=== PATIENT | male | born 1940 | race Caucasian/White ===

== ENCOUNTER 2018-03-13 17:03 | Emergency (ER) | payer MEDICARE, OTHER ==
[2018-03-13] MEDS ORDERED: Sulfamethox/Trimethoprim DS 800/160* TAB PO ONE (19:24)
--- NOTE | 2018-03-13 19:25 | ED ---
Skin Complaint - HPI Summary HPI Summary: Complains of possible insect bite to right becerra 3 days with purulent drainage and redness and tenderness on right anterior becerra. Denies fever, N/V, loss of sensation or function in right lower extremity. - History of Current Complaint Chief Complaint: EDExtremityLower Time Seen by Provider: 03/13/18 17:47 Stated Complaint: RT LEG LAC Hx Obtained From: Patient Onset/Duration: Started Days Ago Timing: Constant Onset Severity: Mild Current Severity: Mild Pain Intensity: 2 Pain Scale Used: 0-10 Numeric Skin Location: Discrete Aggravating Symptom(s): Nothing Alleviating Symptom(s): Nothing Associated Signs & Symptoms: Tenderness - Allergy/Home Medications Allergies/Adverse Reactions: Allergies Allergy/AdvReac Type Severity Reaction Status Date / Time No Known Allergies Allergy Verified 03/13/18 17:10 PMH/Surg Hx/FS Hx/Imm Hx Infectious Disease History: No Infectious Disease History: Denies: Traveled Outside the [place] in Last 30 Days - Social History Alcohol Use: None Substance Use Type: Reports: None Smoking Status (MU): Former Smoker Review of Systems Constitutional: Negative Eyes: Negative ENT: Negative Cardiovascular: Negative Respiratory: Negative Gastrointestinal: Negative Genitourinary: Negative Musculoskeletal: Negative Skin: Other Neurological: Negative Psychological: Normal All Other Systems Reviewed And Are Negative: Yes Physical Exam - Summary Physical Exam Summary: 5 cm x 5 cm area of erythema with very small opening with minimal purulent drainage. PMS intact on right lower extremity. Triage Information Reviewed: Yes Vital Signs On Initial Exam: Initial Vitals Temp Pulse Resp BP Pulse Ox 98.1 F 73 16 130/78 99 03/13/18 17:06 03/13/18 17:06 03/13/18 17:06 03/13/18 17:06 03/13/18 17:06 Vital Signs Reviewed: Yes Appearance: Positive: Well-Appearing Skin: Positive: Warm Head/Face: Positive: Normal Head/Face Inspection Eyes: Positive: Normal Neck: Positive: Supple Respiratory/Lung Sounds: Positive: Clear to Auscultation Cardiovascular: Positive: Normal Abdomen Description: Positive: Nontender Musculoskeletal: Positive: Normal Neurological: Positive: Normal Psychiatric: Positive: Normal AVPU Assessment: Alert - Arnold Coma Scale Best Eye Response: 4 - Spontaneous Best Motor Response: 6 - Obeys Commands Best Verbal Response: 5 - Oriented Coma Scale Total: 15 Procedures - Incision and Drainage 1 Site: right anterior becerra Anesthesia: Other - no anesthesia. Patient opted to just have manual pressure applied to drain abscess instead of doing anesthesia. Manual pressure only, no scapula or needle use Diagnostics - Vital Signs Vital Signs Temp Pulse Resp BP Pulse Ox 03/13/18 17:06 98.1 F 73 16 130/78 99 - Laboratory Lab Statement: Any lab studies that have been ordered have been reviewed, and results considered in the medical decision making process. Course/Dx - Course Course Of Treatment: Complains of possible insect bite to right becerra 3 days with purulent drainage and redness and tenderness on right anterior becrera. Denies fever, N/V, loss of sensation or function in right lower extremity.5 cm x 5 cm area of erythema with very small opening with minimal purulent drainage. PMS intact on right lower extremity. Started on Bactrim here. Rx for same - Diagnoses Provider Diagnoses: Abscess, Cellulitis Discharge - Sign-Out/Discharge Documenting (check all that apply): Discharge/Admit/Transfer - Discharge Plan Condition: Stable Disposition: HOME Prescriptions: Sulfamethox/Trimethoprim DS* [Bactrim DS 800/160 TAB*] 1 tab PO BID 10 Days #20 tab Patient Education Materials: Cellulitis (ED), Abscess (ED) Referrals: Rossana GANNON,Edi Wan [Primary Care Provider] - Additional Instructions: Take antibiotics as directed. Wash wound with warm water and water and soap. Do not submerge underwater as in bathing or swimming. Keep wound clean and dry when not washing. Cover with antibiotic ointment and protection. Return to the ED for any new or worsening symptoms - Billing Disposition and Condition Condition: STABLE Disposition: Home
[2018-03-13 20:18] VITALS: BP 164/94
== END 2018-03-13 20:17 | disposition home or self-care (01) ==
LOC: ED 17:03
DX: L02.415 Cutaneous abscess of right lower limb (principal); Z87.891 Personal history of nicotine dependence
CPT/HCPCS: 10060; 99282; A9270-GY

== ENCOUNTER 2018-09-30 12:57 | Emergency (ER) | payer MEDICARE, OTHER ==
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
[2018-09-30] MEDS ORDERED: Acetaminophen TAB* 325 MG PO ONE (13:15)
[2018-09-30 14:30] VITALS: BP 145/113
== END 2018-09-30 14:30 | disposition home or self-care (01) ==
LOC: ED 12:57
DX: S20.219A Contusion of unspecified front wall of thorax, initial encounter (principal); S80.12XA Contusion of left lower leg, initial encounter; Z87.891 Personal history of nicotine dependence; I10 Essential (primary) hypertension; M19.90 Unspecified osteoarthritis, unspecified site; V47.6XXA Car passenger injured in collision with fixed or stationary object in traffic accident, initial encounter; Y92.410 Unspecified street and highway as the place of occurrence of the external cause
CPT/HCPCS: 71046; 71120; 99282; A9270-GY